=== PATIENT | female | born 1990 | race African-American/Black ===

== ENCOUNTER 2018-10-23 11:50 | Emergency (ER) | payer MEDICAID ==
[~2018-10-23] VITALS: Ht 172.7 cm; Wt 66.0 kg
[2018-10-23 12:00] VITALS: BP 110/45
[2018-10-23] MEDS ORDERED: CEFTRIAXONE SODIUM 250 MG/VIAL IM ONE (12:45)
[2018-10-23] MEDS ORDERED: AZITHROMYCIN 500 MG TABLET PO ONE (12:45)
[2018-10-23 14:43] LABS: CLARITY URINE TURBID (CLEAR); COLOR URINE YELLOW (YELLOW); KETONES URINE NEGATIVE (NEGATIVE); LEUKOCYTE ESTERASE URINE TRACE (NEGATIVE); NITRITE URINE NEGATIVE (NEGATIVE); OCCULT BLOOD URINE NEGATIVE (NEGATIVE); PH URINE 7.5 (4.5-8.0); PROTEIN URINE NEGATIVE (NEGATIVE); SPECIFIC GRAVITY URINE 1.027 (1.005-1.030); UROBILINOGEN URINE 0.2 E.U./dL (0.2-1.0)
== END 2018-10-23 13:35 | disposition home or self-care (01) ==
LOC: ER 11:50
DX: N89.8 Other specified noninflammatory disorders of vagina (principal); Z20.2 Contact with and (suspected) exposure to infections with a predominantly sexual mode of transmission; F41.9 Anxiety disorder, unspecified; J45.909 Unspecified asthma, uncomplicated; Z88.0 Allergy status to penicillin
CPT/HCPCS: 81003; 81025; 96372; 99283; J0696